=== PATIENT | female | born 1940 | race Caucasian/White ===

== ENCOUNTER 2019-12-18 10:20 | Day surgery (SDC) | payer MEDICARE ==
[2019-12-18] MEDS ORDERED: LIDOcaine 1%/PF 5ML 10 MG/ML VIAL ONE ×2 (11:41→11:48)
[2019-12-18] MEDS ORDERED: mupirocin 2% ointment 22GM ONE (11:54)
== END 2019-12-18 12:10 | disposition home or self-care (01) ==
LOC: WOUND CARE 10:20
PROVIDERS: ATTEND Surgery
DX: C43.61 Malignant melanoma of right upper limb, including shoulder (principal); J44.9 Chronic obstructive pulmonary disease, unspecified; I10 Essential (primary) hypertension; M19.90 Unspecified osteoarthritis, unspecified site; H93.19 Tinnitus, unspecified ear; F41.9 Anxiety disorder, unspecified; Z90.710 Acquired absence of both cervix and uterus
CPT/HCPCS: 11603

== ENCOUNTER 2025-07-24 14:07 | Outpatient (CLI) | payer MEDICARE ==
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
== END 2025-07-24 23:59 | disposition home or self-care (01) ==
LOC: RAD 14:07
PROVIDERS: ATTEND Physician Assistant
DX: K21.9 Gastro-esophageal reflux disease without esophagitis (principal); R13.12 Dysphagia, oropharyngeal phase; R13.14 Dysphagia, pharyngoesophageal phase
CPT/HCPCS: 74230